=== PATIENT | female | born 1990 | race Two or more races ===

== ENCOUNTER 2022-05-23 02:44 | Emergency (ER) | payer OTHER ==
[~2022-05-23] VITALS: Ht 157.5 cm; Wt 59.0 kg
[~2022-05-23 02:44] MED LIST: NUVARING V1 VAG.RING
== END 2022-05-23 05:42 | disposition home or self-care (01) ==
LOC: ER 02:44
DX: R11.10 Vomiting, unspecified (principal); R42 Dizziness and giddiness

== ENCOUNTER 2022-08-31 12:29 | Emergency (ER) | payer OTHER ==
[~2022-08-31] VITALS: Ht 160 cm; Wt 61.2 kg
[2022-08-31] MEDS ORDERED: FLONASE ALLERG9.9 ML NASAL (14:56)
[2022-08-31] MEDS ORDERED: ZYRTEC10 M3 PO (14:56)
== END 2022-08-31 15:03 | disposition home or self-care (01) ==
LOC: ER 12:29
DX: R53.81 Other malaise (principal); R05.8 Other specified cough; M94.0 Chondrocostal junction syndrome [Tietze]

== ENCOUNTER 2022-09-20 14:09 | Outpatient (CLI) | payer OTHER ==
[~2022-09-20 14:09] MED LIST changes: +FLONASE ALLERG9.9 ML NASAL; +ZYRTEC10 M3 PO
== END 2022-09-20 15:00 | disposition home or self-care (01) ==
LOC: SONOGRAMA 14:09
DX: N64.4 Mastodynia (principal)

== ENCOUNTER 2022-09-30 08:29 | Outpatient (CLI) | payer OTHER | END 2022-09-30 08:41 | disposition home or self-care (01) | LOC: SONOGRAMA 08:29 | PROVIDERS: ATTEND Internal Medicine | DX: N85.01 Benign endometrial hyperplasia (principal); N80.109 Endometriosis of ovary, unspecified side, unspecified depth; N80.8 Other endometriosis; N80.30 Endometriosis of pelvic peritoneum, unspecified; K80.80 Other cholelithiasis without obstruction ==

== ENCOUNTER 2023-06-08 13:14 | Emergency (ER) | payer OTHER ==
[~2023-06-08] VITALS: Ht 157.5 cm; Wt 59.0 kg
[2023-06-08 16:25] LABS: HEMATOCRIT 38.6 % (36.0-45.00); HEMOGLOBIN 13.3 g/dL (12.0-15.00); MEAN CELL VOLUME 89.2 fL (80.00-100.00); MEAN CORPUSCULAR HEMOGLOBIN 30.7 pg (27.00-32.0); MEAN CORPUSCULAR HGB CONC 34.4 g/dl (32.0-36.0); PLATELET COUNT 176 K/uL (150-450); RED BLOOD COUNT 4.33 M/uL (4.00-6.00); RED CELL DISTRIBUTION WIDTH 13.2 % (11.5-14.5)
[2023-06-08] MEDS ORDERED: OSEL75CA PO (17:00)
== END 2023-06-08 17:23 | disposition home or self-care (01) ==
LOC: ER 13:14
PROVIDERS: Nurse Practitioner Family
DX: J10.1 Influenza due to other identified influenza virus with other respiratory manifestations (principal); R50.9 Fever, unspecified; Z20.822 Contact with and (suspected) exposure to COVID-19